=== PATIENT | female | born 1945 | race Caucasian/White ===

== ENCOUNTER 2016-06-30 15:56 | Observation (INO) ==
--- NOTE | 2016-06-30 16:56 | Emergency Department Note ---
Disposition Clinical Impression: Community acquired pneumonia, Hypoxia, Dyspnea Disposition: Admitted As Inpatient Condition: Fair Referrals: Bernard Rod Jr, MD [Primary Care Provider] - Forms: ED Satisfaction Letter General Adult HPI - General Chief complaint: ED Shortness of Breath/Dyspnea Stated complaint: MARYURI Time Seen by Provider: 06/30/16 16:51 Source: patient Limitations: no limitations - History of Present Illness Pain Scale: 0 - Related Data Home Medications Medication Instructions Recorded Confirmed Albuterol Neb [AccuNeb] 0.63 mg IH Q4-6H PRN 06/30/16 06/30/16 Albuterol Sulfate [Ventolin Hfa] 2 puff IH Q4H PRN 06/30/16 06/30/16 Amlodipine Besylate 10 mg PO DAILY 06/30/16 06/30/16 Budesonide/Formoterol 160/4.5 2 puff IH BIDR 06/30/16 06/30/16 [Symbicort 160/4.5] Escitalopram [Lexapro] 20 mg PO DAILY 06/30/16 06/30/16 Gabapentin [Neurontin] 300 mg PO TID 06/30/16 06/30/16 Insulin NPH, HUMAN [HumuLIN N] 15 unit SQ BID 06/30/16 06/30/16 Lisinopril [Zestril] 5 mg PO DAILY 06/30/16 06/30/16 Metformin [Glucophage] 500 mg PO BIDWM 06/30/16 06/30/16 Omeprazole [PriLOSEC] 20 mg PO DAILY 06/30/16 06/30/16 Oxycodone HCl/Acetaminophen 1 each PO Q4-6H PRN 06/30/16 06/30/16 [Percocet 10-325 mg Tablet] Simvastatin [Zocor] 60 mg PO QPM 06/30/16 06/30/16 Temazepam [Restoril] 30 mg PO HS 06/30/16 06/30/16 Allergies Allergy/AdvReac Type Severity Reaction Status Date / Time No Known Allergies Allergy Verified 06/30/16 15:58 Past Medical History - Past Medical History Medical history: Reports: COPD, diabetes, hypertension, TIA Psychiatric history: Reports: no psych history - Social History Smoking Status: Former smoker Alcohol use: Reports: none Drug use: Reports: none Physical Exam - General Limitations: no limitations General appearance: alert, in no apparent distress Course Vital Signs Temperature 98.1 F 06/30/16 15:58 Pulse Rate 104 06/30/16 15:58 Respiratory Rate 20 06/30/16 15:58 Blood Pressure 115/78 06/30/16 15:58 O2 Sat by Pulse Oximetry 97 06/30/16 15:58 Temperature 98.1 F 06/30/16 15:58 Pulse Rate 104 06/30/16 17:05 Respiratory Rate 18 06/30/16 18:03 Blood Pressure 115/78 06/30/16 18:03 O2 Sat by Pulse Oximetry 96 06/30/16 18:03 Oxygen Delivery Oxygen Delivery Nasal Cannula Medical Decision Making - Lab Data Result diagrams: 06/30/16 18:26 06/30/16 18:26 Lab Results 06/30/16 06/30/16 06/30/16 Range/Units 18:26 18:26 18:26 WBC 8.2 (4.3-11.1) K/mcL RBC 4.02 (3.82-4.97) M/mcL Hgb 10.7 L (11.5-15.4) g/dL Hct 34.7 L (35.3-44.9) % MCV 86.3 (83.0-100.0) fL MCH 26.6 L (28.0-33.3) pg MCHC 30.8 L (31.6-35.5) g/dL RDW 15.0 H (11.5-14.5) % Plt Count 484 H (140-400) K/mcL MPV 8.9 L (9.4-12.4) fL Immature Gran % 0.4 (0-4) % Seg Neutrophils % 64.8 % Lymphocytes % 19.8 % Monocytes % 11.2 % Eosinophils % 3.2 % Basophils % 0.6 % Neutrophils # 5.3 (1.6-8.9) K/mcL Lymphocytes # 1.6 (0.6-4.6) K/mcL Monocytes # 0.9 (0.0-1.3) K/mcL Eosinophils # 0.3 (0.0-0.6) K/mcL Basophils # 0.1 (0.0-0.2) K/mcL Sodium 141 (136-145) mEq/L Potassium 3.8 (3.5-4.5) mEq/L Chloride 107 (98-109) mEq/L Carbon Dioxide 23 (19-29) mEq/L BUN 19 (7-20) mg/dL Creatinine 1.26 H (0.57-1.11) mg/dL Est GFR ( Amer) 51 L (> 60) Est GFR (Non-Af Amer) 42 L (> 60) BUN/Creatinine Ratio 15 (6-26) Glucose 111 H (70-99) mg/dL Calculated Osmolality 295 (280-300) Calcium 9.4 (8.6-10.8) mg/dL Troponin I 0.01 (0-0.03) ng/mL B-Natriuretic Peptide (0-100) pg/mL 06/30/16 Range/Units 18:26 WBC (4.3-11.1) K/mcL RBC (3.82-4.97) M/mcL Hgb (11.5-15.4) g/dL Hct (35.3-44.9) % MCV (83.0-100.0) fL MCH (28.0-33.3) pg MCHC (31.6-35.5) g/dL RDW (11.5-14.5) % Plt Count (140-400) K/mcL MPV (9.4-12.4) fL Immature Gran % (0-4) % Seg Neutrophils % % Lymphocytes % % Monocytes % % Eosinophils % % Basophils % % Neutrophils # (1.6-8.9) K/mcL Lymphocytes # (0.6-4.6) K/mcL Monocytes # (0.0-1.3) K/mcL Eosinophils # (0.0-0.6) K/mcL Basophils # (0.0-0.2) K/mcL Sodium (136-145) mEq/L Potassium (3.5-4.5) mEq/L Chloride (98-109) mEq/L Carbon Dioxide (19-29) mEq/L BUN (7-20) mg/dL Creatinine (0.57-1.11) mg/dL Est GFR ( Amer) (> 60) Est GFR (Non-Af Amer) (> 60) BUN/Creatinine Ratio (6-26) Glucose (70-99) mg/dL Calculated Osmolality (280-300) Calcium (8.6-10.8) mg/dL Troponin I (0-0.03) ng/mL B-Natriuretic Peptide 25 (0-100) pg/mL Attestation Statement - Attestation Attestation: I examined this patient and my medical decision-making was reviewed with the BAG LOADER MACHINE OPERATOR/PA/Advanced Practice Nurse/Resident Physician. I agree with the documented findings, disposition and treatment plan as described except to the extent set forth below. [id number] time providing Patient presents complaining of dyspnea. She has a known history of oxygen- dependent COPD. Mild dyspnea noted on exam. Plan of care and management discussed by me with the resident physician 19:38: The patient has a right bundle-branch block and is both tachycardic and mildly hypoxic. We cannot exclude a pulmonary embolus. She is moderate risk which eliminates the use of a d-dimer. CTA chest ordered. I did discuss the patient's GFR and creatinine with the lift team technician.
[2016-06-30] MEDS ORDERED: methylPREDNISolone 125 MG/2 ML VIAL IVP ONE (17:34)
[2016-06-30] MEDS ORDERED: Ipratropium/Albuterol Neb 3 ML IH ONE (17:34)
[2016-06-30] MEDS ORDERED: 0.9 % Sodium Chloride 500 ML IV ONE (17:35)
--- NOTE | 2016-06-30 18:14 | Emergency Department Note ---
Disposition Clinical Impression: Community acquired pneumonia, Hypoxia, Dyspnea Disposition: Admitted As Inpatient Condition: Fair Referrals: Bernard Rod Jr, MD [Primary Care Provider] - Forms: ED Satisfaction Letter SOB HPI - General Chief Complaint: ED Shortness of Breath/Dyspnea Stated Complaint: MARYURI Time Seen by Provider: 06/30/16 16:51 Source: patient Limitations: no limitations Nursing Notes Reviewed: Yes Vital Signs Reviewed: Yes - History of Present Illness 71-year-old female with a history of COPD, type 2 diabetes and hypertension presents emergency Department with a chief complaint of shortness of breath. She has been coughing and sick for the last 5 days but over the last 2 days she has had worsening shortness of breath and has developed productive, green sputum. History of pneumonia in the past. She does use inhalers for her COPD. She has had no fevers or chills. Denies any lightheadedness or syncope. Denies any abdominal pain. She did have a few episodes of vomiting but that has resolved. She has been eating and drinking normally and having normal bowel movements. Denies any chest pain or pressure. Shortness of breath is worse with exertion. She does wear oxygen when needed at home and has noticed she has been wearing this more often. Denies any lower extremity swelling or calf pain. No history of clots or DVTs. - Related Data Home Medications Medication Instructions Recorded Confirmed Albuterol Neb [AccuNeb] 0.63 mg IH Q4-6H PRN 06/30/16 06/30/16 Albuterol Sulfate [Ventolin Hfa] 2 puff IH Q4H PRN 06/30/16 06/30/16 Amlodipine Besylate 10 mg PO DAILY 06/30/16 06/30/16 Budesonide/Formoterol 160/4.5 2 puff IH BIDR 06/30/16 06/30/16 [Symbicort 160/4.5] Escitalopram [Lexapro] 20 mg PO DAILY 06/30/16 06/30/16 Gabapentin [Neurontin] 300 mg PO TID 06/30/16 06/30/16 Insulin NPH, HUMAN [HumuLIN N] 15 unit SQ BID 06/30/16 06/30/16 Lisinopril [Zestril] 5 mg PO DAILY 06/30/16 06/30/16 Metformin [Glucophage] 500 mg PO BIDWM 06/30/16 06/30/16 Omeprazole [PriLOSEC] 20 mg PO DAILY 06/30/16 06/30/16 Oxycodone HCl/Acetaminophen 1 each PO Q4-6H PRN 06/30/16 06/30/16 [Percocet 10-325 mg Tablet] Simvastatin [Zocor] 60 mg PO QPM 06/30/16 06/30/16 Temazepam [Restoril] 30 mg PO HS 06/30/16 06/30/16 Allergies Allergy/AdvReac Type Severity Reaction Status Date / Time No Known Allergies Allergy Verified 06/30/16 15:58 All systems ED: reviewed and negative except as stated. Constitutional: Denies: fever, chills Cardiovascular: Reports: dyspnea on exertion. Denies: chest pain, palpitations , syncope Respiratory: Reports: cough, sputum production. Denies: dyspnea, wheezes Gastrointestinal: Reports: nausea, vomiting. Denies: abdominal pain Musculoskeletal: Denies: back pain, neck pain Integumentary: Denies: rash Neurological: Denies: headache, weakness, numbness Past Medical History - Past Medical History Medical history: Reports: COPD, diabetes, hypertension, TIA Psychiatric history: Reports: no psych history - Social History Smoking Status: Former smoker Alcohol use: Reports: none Drug use: Reports: none Physical Exam General: Patient is talkative, appropriate, she does seem somewhat short of breath as well Cardiovascular: Borderline tachy around 95. Regular rhythm. S1, S2. No murmurs, rubs or gallops. Respiratory: Diminished breath sounds bilaterally with end expiratory wheezing. Coarse breath sounds slightly on the left. Mild respiratory distress. Occasional coughing. Breathing around 26 times a minute. Abdomen: Soft, nontender. No guarding, rebound or rigidity. Normal bowel sounds throughout. Negative Livingston's. No palpable organomegaly Eyes: Pupils equally round and reactive to light, extraocular muscles intact, conjunctiva clear HENT: Normocephalic, no signs of head injury. No oral mucosal lesions. Moist mucous membranes Neuro: Cranial nerves intact. No motor or sensory deficit. Musculoskeletal: No joint tenderness or swelling. There is no redness, swelling , edema, tenderness, asymmetry, pain along the venous system or any other sign of DVT. Skin: No lesions. No diaphoresis. Normal turgor. Normal color Psych: Appropriate - General Limitations: no limitations General appearance: alert, in no apparent distress Course Course Narrative: Patient was put on a pulse oximeter and by the time she was helped out of bed her pulse oximetry dropped to 85%. With ambulation she becomes hypoxic very quickly. Usually she does not require oxygen continuously. Chest x-ray shows left lower lobe pneumonia. Patient is quite symptomatically and seems to be short of breath. Some improvement with DuoNeb's. She also has a history of COPD he was given steroids. We started her on Levaquin for her pneumonia. She has not been in the hospital since February and at that time she had pneumonia. I discussed this with the patient and the son and they are both comfortable with admission. Plan to admit for pneumonia and hypoxia with increased oxygen requirements. Discussed with the on-call hospitalist, Dr. Enriquez accepts for admission. After reviewing her workup with her new RBBB and the S1, Q3, T3 pattern along with her tachycardia and hypoxia we have decided to rule her out for PE. We will order a CT angiography of her chest. Her kidney function is borderline but we called radiology and we will do a half dose. She will be given fluid hydration along with this. It is very importantly rule this out because it is certainly a possibility and can be life-threatening. - Reevaluation(s) Reevaluation #1: CTA shows no evidence of pulmonary embolus. She does have left lower lobe pneumonia. Possible right apical multifocal pneumonia. Plan to continue with antibiotics, supplemental O2, fluid hydration and admission. Vital Signs Temperature 98.1 F 06/30/16 15:58 Pulse Rate 104 06/30/16 15:58 Respiratory Rate 20 06/30/16 15:58 Blood Pressure 115/78 06/30/16 15:58 O2 Sat by Pulse Oximetry 97 06/30/16 15:58 Temperature 98.1 F 06/30/16 15:58 Pulse Rate 101 06/30/16 20:00 Respiratory Rate 16 06/30/16 20:00 Blood Pressure 101/50 06/30/16 20:00 O2 Sat by Pulse Oximetry 95 06/30/16 20:00 Oxygen Delivery Oxygen Delivery Nasal Cannula Shortness of Breath/Dyspnea - Lab Data Result diagrams: 06/30/16 18:26 06/30/16 18:26 Lab Results 06/30/16 06/30/16 06/30/16 Range/Units 18:26 18:26 18:26 WBC 8.2 (4.3-11.1) K/mcL RBC 4.02 (3.82-4.97) M/mcL Hgb 10.7 L (11.5-15.4) g/dL Hct 34.7 L (35.3-44.9) % MCV 86.3 (83.0-100.0) fL MCH 26.6 L (28.0-33.3) pg MCHC 30.8 L (31.6-35.5) g/dL RDW 15.0 H (11.5-14.5) % Plt Count 484 H (140-400) K/mcL MPV 8.9 L (9.4-12.4) fL Immature Gran % 0.4 (0-4) % Seg Neutrophils % 64.8 % Lymphocytes % 19.8 % Monocytes % 11.2 % Eosinophils % 3.2 % Basophils % 0.6 % Neutrophils # 5.3 (1.6-8.9) K/mcL Lymphocytes # 1.6 (0.6-4.6) K/mcL Monocytes # 0.9 (0.0-1.3) K/mcL Eosinophils # 0.3 (0.0-0.6) K/mcL Basophils # 0.1 (0.0-0.2) K/mcL Sodium 141 (136-145) mEq/L Potassium 3.8 (3.5-4.5) mEq/L Chloride 107 (98-109) mEq/L Carbon Dioxide 23 (19-29) mEq/L BUN 19 (7-20) mg/dL Creatinine 1.26 H (0.57-1.11) mg/dL Est GFR ( Amer) 51 L (> 60) Est GFR (Non-Af Amer) 42 L (> 60) BUN/Creatinine Ratio 15 (6-26) Glucose 111 H (70-99) mg/dL Calculated Osmolality 295 (280-300) Calcium 9.4 (8.6-10.8) mg/dL Troponin I 0.01 (0-0.03) ng/mL B-Natriuretic Peptide (0-100) pg/mL 06/30/16 Range/Units 18:26 WBC (4.3-11.1) K/mcL RBC (3.82-4.97) M/mcL Hgb (11.5-15.4) g/dL Hct (35.3-44.9) % MCV (83.0-100.0) fL MCH (28.0-33.3) pg MCHC (31.6-35.5) g/dL RDW (11.5-14.5) % Plt Count (140-400) K/mcL MPV (9.4-12.4) fL Immature Gran % (0-4) % Seg Neutrophils % % Lymphocytes % % Monocytes % % Eosinophils % % Basophils % % Neutrophils # (1.6-8.9) K/mcL Lymphocytes # (0.6-4.6) K/mcL Monocytes # (0.0-1.3) K/mcL Eosinophils # (0.0-0.6) K/mcL Basophils # (0.0-0.2) K/mcL Sodium (136-145) mEq/L Potassium (3.5-4.5) mEq/L Chloride (98-109) mEq/L Carbon Dioxide (19-29) mEq/L BUN (7-20) mg/dL Creatinine (0.57-1.11) mg/dL Est GFR ( Amer) (> 60) Est GFR (Non-Af Amer) (> 60) BUN/Creatinine Ratio (6-26) Glucose (70-99) mg/dL Calculated Osmolality (280-300) Calcium (8.6-10.8) mg/dL Troponin I (0-0.03) ng/mL B-Natriuretic Peptide 25 (0-100) pg/mL - EKG Data EKG results narrative: EKG shows sinus tachycardia with a rate of about 100 bpm. There is a right bundle branch block. There is no significant ST changes. Right axis deviation.
[2016-06-30 18:40] LABS: Basophils # 0.1 K/mcL (0.0-0.2); Basophils % 0.6 %; Eosinophils # 0.3 K/mcL (0.0-0.6); Eosinophils % 3.2 %; Hematocrit 34.7 % (35.3-44.9); Hemoglobin 10.7 g/dL (11.5-15.4); Immature Granulocytes % 0.4 % (0-4); Lymphocytes # 1.6 K/mcL (0.6-4.6); Lymphocytes % 19.8 %; Mean Corpuscular HGB Conc 30.8 g/dL (31.6-35.5); Mean Corpuscular Hemoglobin 26.6 pg (28.0-33.3); Mean Corpuscular Volume 86.3 fL (83.0-100.0); Mean Platelet Volume 8.9 fL (9.4-12.4); Monocytes # 0.9 K/mcL (0.0-1.3); Monocytes % 11.2 %; Neutrophils # 5.3 K/mcL (1.6-8.9); Platelet Count 484 K/mcL (140-400); Red Blood Count 4.02 M/mcL (3.82-4.97); Segmented Neutrophils % 64.8 %
[2016-06-30 18:59] LABS: Calcium 9.4 mg/dL (8.6-10.8); Potassium 3.8 mEq/L (3.5-4.5)
[2016-06-30] MEDS ORDERED: Levofloxacin 750 MG/150 ML 750 MG/150 ML BAG IVPB ONE (19:04)
[2016-06-30] MEDS ORDERED: 0.9 % Sodium Chloride 1,000 ML IV ONE (19:04)
[2016-06-30] MEDS ORDERED: 0.9 % Sodium Chloride 1,000 ML IVC SCH (20:30)
[2016-06-30] MEDS ORDERED: Naloxone 0.4 MG/ML INJ IVP PRN (23:15)
[2016-06-30] MEDS ORDERED: *HR* Morphine 2 MG/ML SYRINGE IVP PRN (23:15)
[2016-06-30] MEDS ORDERED: Acetaminophen 325 MG TABLET PO PRN (23:15)
[2016-06-30] MEDS ORDERED: *HR* OxyCODONE Immed Rel 5 MG TABLET PO PRN (23:15)
[2016-06-30] MEDS ORDERED: Ondansetron 4 MG/2 ML VIAL IVP PRN (23:15)
[2016-06-30] MEDS ORDERED: Albuterol 2.5 MG/3 ML NEBULIZER IH PRN (23:15)
[2016-06-30] MEDS ORDERED: Temazepam 15 MG CAPSULE PO PRN (23:25)
[2016-06-30] MEDS ORDERED: D5% in Water 1,000 ML IV PRN (23:29)
[2016-06-30] MEDS ORDERED: Dextrose Gel 15 GM PO PRN ×2 (23:29)
[2016-06-30] MEDS ORDERED: *HR* Dextrose 50 % in Water (Syg) 50 ML SYRINGE IVP PRN (23:29)
[2016-06-30] MEDS ORDERED: Insulin DETEMIR 100 UNIT/ML X5UNITS SQ SCH (23:30)
[2016-06-30] MEDS ORDERED: Melatonin 3 MG TABLET PO SCH (23:30)
[2016-07-01] MEDS: Ipratropium/Albuterol Neb 3 ML IH SCH ×5 (00:16→22:37)
[2016-07-01] MEDS: Insulin LISPRO 300 UNITS/3 ML VIAL SQ SCH ×5 (00:32→21:03)
[2016-07-01 01:47] LABS: Hematocrit 33.6 % (35.3-44.9); Hemoglobin 10.4 g/dL (11.5-15.4); Immature Platelets 1.7 % (1.1-6.1); Mean Corpuscular Hemoglobin 26.9 pg (28.0-33.3); Mean Platelet Volume 8.9 fL (9.4-12.4); Red Blood Count 3.86 M/mcL (3.82-4.97)
[2016-07-01 01:53] LABS: INR 1.2; Prothrombin Time 13.3 Seconds (9.4-12.1); VBG HCO3 23.1 mEq/L (21-27); VBG PH 7.38 pH Units (7.32-7.42)
[2016-07-01 01:54] LABS: Ionized Calcium 1.19 mmol/L (1.15-1.35)
[2016-07-01 01:55] LABS: Activated Partial Thrombo Time 30.3 Seconds (26.0-36.0)
[2016-07-01 02:06] LABS: Hemoglobin A1C 7.2 %
[2016-07-01 02:07] LABS: Albumin 2.9 g/dL (3.5-5.0); Albumin/Globulin Ratio 0.7 (1.1-2.2); Bilirubin,Total 0.2 mg/dL (0.2-1.2); Calcium 9.5 mg/dL (8.6-10.8); Chol/HDL Ratio 3.1 (0-4.9); Magnesium 1.3 mg/dL (1.6-2.6); Phosphorous 2.8 mg/dL (2.3-4.7); Potassium 3.9 mEq/L (3.5-4.5); Total Protein 6.9 g/dL (6.0-8.3)
[2016-07-01 02:27] LABS: Thyroid Stimulating Hormone 0.983 mcIU/mL (0.350-4.840)
[2016-07-01] MEDS: Benzonatate 100 MG CAPSULE PO PRN ×2 (04:16→17:35)
[2016-07-01] MEDS: *HR* Heparin 5,000 UNIT/ML VIAL SQ SCH ×3 (06:03→21:03)
[2016-07-01] MEDS: predniSONE 20 MG TABLET PO SCH (08:07)
[2016-07-01] MEDS: Gabapentin 300 MG CAPSULE PO SCH ×3 (08:08→21:03)
[2016-07-01] MEDS: amLODIPine 5 MG TABLET PO SCH (08:08)
--- NOTE | 2016-07-01 08:21 | Internal Med History&Physical ---
Date of Encounter: 06/30/16 Time of Encounter: 23:00 Assessment and Plan (1) Acute on chronic respiratory failure with hypoxemia Status: Acute . (2) RBBB Status: Acute . (3) Obesity (BMI 30-39.9) Status: Chronic . (4) HTN (hypertension) Status: Chronic . Qualifiers: Hypertension type: unspecified secondary hypertension Qualified Code(s): I15.9 - Secondary hypertension, unspecified; I15 - Secondary hypertension (5) Acute chronic obstructive pulmonary disease with respiratory failure Status: Acute . (6) Acute exacerbation of COPD with asthma Status: Acute . (7) Community acquired pneumonia Status: Acute . Internal Medicine - H&P: HPI Chief complaint: Difficulty breathing Admitted From: Emergency Dept Plans for Post Hospital Care: Home History of present illness: Ms. Lanza is a 71 year old female with history significant of type 2 diabetes mellitus, hypertension, COPD, chronic respiratory failure oxygen dependent, H/ OTIA, GERD, depression and anxiety, osteoarthritis, anemia, chronic musculoskeletal pain, obesity, former heavy smoker The patient was visited and interviewed and examined. Patient is admitted to [facility] via the emergency department when she presents reports difficulty in breathing. Patient has a long history of problematic chronic respiratory failure oxygen dependent. She acknowledges a former heavy tobacco usage discontinued over 6 years prior. However still lives in a smoking household. She reports with generalized malaise over a urinalysis 5- 70. Time worse in the 2 days leading up to presentation. Sputum as become more productive and green and thick. No evidence for hemoptysis. Symptoms reminiscent of pneumonia experience in the past. Home treatments currently ineffective. Denies overt fevers chills sweats nausea vomiting diarrhea headache syncopal presyncopal complaints. Shortness of breath present at rest but worse with activity home oxygen demand has become more constant recurrent symptoms. Findings in the ED: Temperature 98.1 pulse 104 respirations 16-20 BP 101-115/50- 78. O2 saturation 95-97% liters nasal cannula. WBC 8 point hemoglobin 10.7. Platelets 484,000. RDW 15. MPV 8.9. Differential normal. Metabolic panel BUN 19 creatinine 1.6 GFR 42 . Troponin 0.01 BNP 25. EKG sinus tachycardia. Rate 100. Right bundle branch block. Right axis deviation. No acute ischemic changes. Portable chest x-ray finds left basilar airspace disease suggestive of pneumonia. CT angiogram of the chest demonstrated no evidence for pulmonary embolism. Masslike focus of consolidation in the left lower lobe may represent acute pneumonia. Recommendation for further imaging after the course of therapy. Underlying malignancy cannot be excluded. Opacification of right lung apex may represent fibrotic change. Multifocal pneumonia cannot be excluded. Reactive mediastinal lymph nodes noted. Extensive groundglass attenuation peripherally in the left lower lobe suggesting postobstructive changes. Advanced centrilobular emphysema observed. Masslike focus of consolidation 0.4 x 3.8 cm left lower lobe. Preliminary impression suggest acute on chronic hypoxic respiratory failure secondary to acute exacerbation of COPD bronchitis/community-acquired bronchopneumonia. Radiographic findings suggest possible multifocal pneumonia. Dense masslike focus in the left lower lobe is of concern given patient's significant history of tobacco abuse. Further radiographic study to rule out malignancy will be considered. Systemic inflammatory response syndrome criteria are met. The patient presents at further risk for acute clinical decline and morbidity given her presenting chief complaints, clinical findings and comorbidities. Workup and treatment will proceed comprehensively. Cumulative laboratory and radiographic data base was reviewed, considered and discussed. Pertinent ancillary medical records including ECW and PCI documentation was reviewed and considered. Given the patient's presenting concerns, past medical history, clinical findings and symptoms, she is admitted at this time will undergo further evaluation and disposition. Orders were written as per the computerized physician tape recorder mechanic system.......................................................................... .................... Consultative opinions will be sought as clinical circumstances justify. Pain management needs will be addressed. Laboratory and radiographic data base will be updated as appropriate. Studies include: Cultures of blood urine and sputum, Legionella and streptococcal pneumoniae urine antigen, cardiac injury panel, BNP, coag profile, metabolic and hematologic panel, magnesium, phosphorus, ionized calcium, thyroid panel, lipid profile, A1c, C-peptide, CRP sedimentation rate, respiratory infection profile, respiratory virus panel, blood gas, UA, lactic acid, serologies, etc. Precautions: Aspiration, fall, delirium protocol/surveillance initiated. Telemetry with continuous hemodynamic monitoring and pulse oximetry initiated. Empiric antibiotic coverage: Intravenous Levaquin pending culture data. Special studies: CT/CTA chest, chest x-ray, telemetry, EKG. Pulmonary toilet: Incentive spirometry, aerosol bronchodilator, mucolytic, antitussive, supplemental oxygen. Corticosteroid therapy. CPAP/BiPAP supplemental oxygen delivery. Aerosol Mucomyst therapy. Fluid and electrolyte repletion efforts will proceed. Careful attention to fluid balance and renal recovery will be emphasized. Avoidance of nephrotoxic exposure and adverse drug drug interaction in the setting of impaired renal function will be monitored closely. Acute coronary syndrome protocol/surveillance initiated. DVT and PUD prophylaxis initiated: PPI therapy, intermittent pneumatic cuffs. Subcutaneous heparin. Early ambulation will be encouraged. Immunization updates recommended. Influenza and pneumococcal vaccinations as part of ongoing preventative healthcare recommendations strongly recommended. Smoking cessation counseling briefly addressed. Patient is a former smoker. Advanced care directive discussion briefly addressed. Patient does not declare any healthcare restrictions at this time. Cardiovascular risk appraisal and cardiovascular risk reduction efforts will be emphasized. Physical /occupational therapy may be counseled to evaluate patient's functional capacity and progress mobility as her circumstances permit. Sliding scale insulin coverage, ADA dietary restraint and schedule an as-needed basis fingerstick glucose assessments were initiated. Nutrition/diabetes education counseling may be considered as circumstances justify. Outpatient medication schedules will be reviewed, confirmed and facilitated as appropriate. Reconciliation of home treatments including adjustments, substitutions and reintroduction into the treatment regimen will address necessary maintenance therapies for chronic pre-existing medical conditions. Plan of care has been reviewed and discussed in detail with the patient. Questions addressed. Hospital course dictated by clinical findings, treatment response and potential consultative interventions. Patient is at risk for further acute clinical decline and morbidity due to her advanced age, presenting chief complaints and comorbid conditions. Condition is serious. Prognosis is guarded. CODE STATUS is full. Past Med Surg Social Fam HX - Past Medical History Source: old records reviewed Medical history: arthritis, COPD, diabetes, GERD, hypertension, osteoporosis, TIA, other Psychiatric history: anxiety, depression, other - Past Surgical History Surgical History: hysterectomy, orthopedic, other, other (Ear surgery. Knee surgery. Hand surgery. Carpal tunnel syndrome surgery.) - Social History Smoking Status: Former smoker Alcohol use: none Drug use: none Occupational status: retired Current living situation: With Family Activity Level: Independent ambulation, Mostly sedentary Recent Out of Country Travel Within the Last 8 Weeks: No Exposure or Possible Exposure to Illness During Travel: No - Family History Mother Hx Family Cardiac Disorders: Yes ([place]) Sister Hx Family Cancer: Yes ([place]) Internal Medicine - H&P: Meds Albuterol Neb [AccuNeb] 0.63 mg IH Q4-6H PRN 06/30/16 [History] Albuterol Sulfate [Ventolin Hfa] 2 puff IH Q4H PRN 06/30/16 [History] Amlodipine Besylate 10 mg PO DAILY 06/30/16 [History] Budesonide/Formoterol 160/4.5 [Symbicort 160/4.5] 2 puff IH BIDR 06/30/16 [ History] Escitalopram [Lexapro] 20 mg PO DAILY 06/30/16 [History] Gabapentin [Neurontin] 300 mg PO TID 06/30/16 [History] Insulin NPH, HUMAN [HumuLIN N] 15 unit SQ BID 06/30/16 [History] Omeprazole [PriLOSEC] 20 mg PO DAILY 06/30/16 [History] Oxycodone HCl/Acetaminophen [Percocet 10-325 mg Tablet] 1 each PO Q4-6H PRN [History] Simvastatin [Zocor] 60 mg PO QPM 06/30/16 [History] Temazepam [Restoril] 30 mg PO HS 06/30/16 [History] Benzonatate [Tessalon] 100 mg PO TID PRN #30 capsule 07/02/16 [Rx] Levofloxacin [Levaquin] 500 mg PO DAILY #5 tablet 07/02/16 [Rx] PredniSONE 40 mg PO DAILY 12 Days 07/02/16 [Rx] Lisinopril [Zestril] 5 mg PO DAILY #0 07/07/16 [Rx] Metformin [Glucophage] 500 mg PO BIDWM #0 07/07/16 [Rx] Allergies No Known Allergies Allergy (Verified 06/30/16 15:58) All Systems PM: A 10-system review of systems was performed and is negative for pertinent findings except as documented above in the HPI. - Constitutional Constitutional: as per HPI, malaise, no chills, no fever(s), no night sweats - EENT Eyes: as per HPI, no change in vision, no discharge, no pain, no photophobia Ears: as per HPI, no ear discharge, no ear pain, no tinnitus Nose, mouth and throat: as per HPI, no dysphagia, no nasal discharge, no neck pain, no sore throat - Cardiovascular Cardiovascular ROS IM: as per HPI, no chest pain, no diaphoresis, no dyspnea, no lightheadedness, no palpitations, no syncope - Respiratory Respiratory: as per HPI, cough, dyspnea, dyspnea on exertion, wheezing, chest congestion, pain with cough, no excessive phlegm production - Gastrointestinal Gastrointestinal: as per HPI, no abdominal pain, no diarrhea, no hematemesis, no hematochezia, no melena, no nausea, no vomiting - Genitourinary Genitourinary: as per HPI, no change in urinary stream, no dysuria, no flank pain, no hematuria - Musculoskeletal Musculoskeletal ROS IM: as per HPI, no numbness, no tingling - Integumentary Integumentary IM: as per HPI, no rash, no unusual bruising - Neurological Neurological ROS: as per HPI, no confusion, no convulsions, no focal weakness, no numbness, no tingling, no tremor(s) - Psychiatric Psychiatric: as per HPI - Endocrine Endocrine IM: as per HPI - Hematologic/Lymphatic Hematologic/Lymphatic: as per HPI, no easy bruising - Allergic/Immunologic Allergic/Immunologic: as per HPI - Constitutional Vitals: Temp Pulse Resp BP Pulse Ox 97.6 F 97 20 145/76 93 L 07/01/16 07:17 07/01/16 07:17 07/01/16 07:17 07/01/16 07:17 07/01/16 07:17 General appearance: Present: cooperative, mild distress, A&O X 3, obese, answers questions appropriately - Head Head exam: Present: atraumatic, normal inspection, normocephalic - Eye Eye exam: Present: EOMI, PERRL, conjuntiva pink, sclera anicteric Pupils: Present: normal accommodation, PERRL - ENT ENT exam: Present: mucous membranes moist, normal oropharynx - Neck Neck exam general surgery: Present: full ROM, supple, trachea midline. Absent: lymphadenopathy - Respiratory Respiratory exam: Present: chest wall tenderness, decreased breath sounds, respiratory distress, rhonchi, wheezes. Absent: accessory muscle use, CTAB, rales - Cardiovascular Cardiovascular exam: Present: distant heart sounds, RRR, +S1, +S2. Absent: diastolic murmur, gallop, rubs, systolic murmur - GI/Abdominal GI/Abdominal exam: Present: normal bowel sounds, soft, no peritoneal signs. Absent: distended, tenderness - Extremities Exam Extremities exam: Present: full ROM, warm, radial pulses palpable and symetrical. Absent: calf tenderness, cyanotic, pedal edema - Neurological Exam Neurological exam: Present: alert, CN II-XII intact, oriented X3, no focal deficits. Absent: pronater drift, facial droop, speech deficit - Psychiatric Psychiatric exam: Present: normal affect, normal mood - Skin Skin exam: Present: dry, intact, warm. Absent: petechiae, rash, urticaria, vesicles Internal Med - H&P Results - Labs CBC & Chem 7: 07/01/16 01:34 07/02/16 05:25 Labs: Short CBC 07/01/16 Range/Units 01:34 WBC 7.3 (4.3-11.1) K/mcL Hgb 10.4 L (11.5-15.4) g/dL Hct 33.6 L (35.3-44.9) % Plt Count 492 H (140-400) K/mcL BMP 07/01/16 01:34 Sodium 140 Potassium 3.9 Chloride 109 Carbon Dioxide 20 BUN 20 Creatinine 1.38 H Glucose 293 H Calcium 9.5 Cardiac Enzymes 07/01/16 Range/Units 01:34 Troponin I 0.00 (0-0.03) ng/mL Liver Function 07/01/16 Range/Units 01:34 Total Bilirubin 0.2 (0.2-1.2) mg/dL AST 17 (5-34) Units/L ALT 14 (0-55) Units/L Alkaline Phosphatase 76 (38-126) Units/L Albumin 2.9 L (3.5-5.0) g/dL - ABG Interpretation ABG results: 07/01/16 01:34 VBG pH 7.38 VBG pCO2 39 L VBG pO2 64 H VBG HCO3 23.1 - Impressions Vital Signs Temp Pulse Resp BP Pulse Ox 07/01/16 07:17 97.6 F 97 20 145/76 93 L 07/01/16 04:43 97.8 F 98 15 115/52 95 07/01/16 04:29 18 98 07/01/16 00:18 18 96 07/01/16 00:14 98.2 F 94 14 148/75 95 06/30/16 21:37 98.4 F 98 16 146/71 94 L 06/30/16 21:02 96 20 153/70 94 L 06/30/16 20:00 101 16 101/50 95 06/30/16 19:30 106 16 129/69 95 06/30/16 18:03 18 115/78 96 06/30/16 18:00 94 16 155/75 94 L 06/30/16 17:34 83 20 153/70 94 L 06/30/16 17:05 104 20 115/78 97 06/30/16 15:58 98.1 F 104 20 115/78 97 Intake and Output 06/30/16 07/01/16 07/01/16 23:59 07:59 15:59 Intake Total 650 / 650 800 / 800 Output Total 450 / 450 Balance 650 / 650 350 / 350 Intake: IV Fluids 650 / 650 0.9 % Sodium Chloride 500 500 / 500 ML @ 3750 mls/hr IV BOLUS ONE Rx#:[id number] Levaquin 750mg/150 mL 750 150 / 150 mg In 150 ml @ 100 mls/ hr IVPB ONCE ONE Rx#: [id number] Oral 800 / 800 Output: Urine 450 / 450 Other: Weight 90.446 kg 90.443 kg Blood Glucose* 242 Patient Weight 07/01/16 23:59 Weight 90.443 kg Short CBC 07/01/16 06/30/16 Range/Units 01:34 18:26 WBC 7.3 8.2 (4.3-11.1) K/mcL Hgb 10.4 L 10.7 L (11.5-15.4) g/dL Hct 33.6 L 34.7 L (35.3-44.9) % Plt Count 492 H 484 H (140-400) K/mcL Neutrophils # 5.3 (1.6-8.9) K/mcL BMP 07/01/16 06/30/16 Range/Units 01:34 18:26 Sodium 140 141 (136-145) mEq/L Potassium 3.9 3.8 (3.5-4.5) mEq/L Chloride 109 107 (98-109) mEq/L Carbon Dioxide 20 23 (19-29) mEq/L BUN 20 19 (7-20) mg/dL Creatinine 1.38 H 1.26 H (0.57-1.11) mg/dL Glucose 293 H 111 H (70-99) mg/dL Calcium 9.5 9.4 (8.6-10.8) mg/dL Cardiac Enzymes 07/01/16 06/30/16 Range/Units 01:34 18:26 Troponin I 0.00 0.01 (0-0.03) ng/mL Liver Function 07/01/16 Range/Units 01:34 Total Bilirubin 0.2 (0.2-1.2) mg/dL AST 17 (5-34) Units/L ALT 14 (0-55) Units/L Alkaline Phosphatase 76 (38-126) Units/L Albumin 2.9 L (3.5-5.0) g/dL 07/01/16 01:34 VBG pH 7.38 VBG pCO2 39 L VBG pO2 64 H VBG HCO3 23.1 Abnormal lab results Hgb 10.4 g/dL (11.5-15.4) L 07/01/16 01:34 Hct 33.6 % (35.3-44.9) L 07/01/16 01:34 MCH 26.9 pg (28.0-33.3) L 07/01/16 01:34 MCHC 31.0 g/dL (31.6-35.5) L 07/01/16 01:34 RDW 15.0 % (11.5-14.5) H 07/01/16 01:34 Plt Count 492 K/mcL (140-400) H 07/01/16 01:34 MPV 8.9 fL (9.4-12.4) L 07/01/16 01:34 PT 13.3 Seconds (9.4-12.1) H 07/01/16 01:34 VBG pCO2 39 mmHg (41-51) L 07/01/16 01:34 VBG pO2 64 mmHg (25-40) H 07/01/16 01:34 Creatinine 1.38 mg/dL (0.57-1.11) H 07/01/16 01:34 Est GFR ( Amer) 46 (> 60) L 07/01/16 01:34 Est GFR (Non-Af Amer) 38 (> 60) L 07/01/16 01:34 Glucose 293 mg/dL (70-99) H 07/01/16 01:34 POC Glucose 242 (58-89) H 07/01/16 07:16 Hemoglobin A1c 7.2 % (-5.6) H 07/01/16 01:34 Calculated Osmolality 303 (280-300) H 07/01/16 01:34 Magnesium 1.3 mg/dL (1.6-2.6) L 07/01/16 01:34 C-Reactive Protein 121 mg/L (Less than 5) H 07/01/16 01:34 Albumin 2.9 g/dL (3.5-5.0) L 07/01/16 01:34 Globulin 4.0 g/dL (2.4-3.5) H 07/01/16 01:34 Albumin/Globulin Ratio 0.7 (1.1-2.2) L 07/01/16 01:34 Allergies Allergy/AdvReac Type Severity Reaction Status Date / Time No Known Allergies Allergy Verified 06/30/16 15:58 Laboratory Results WBC 7.3 K/mcL (4.3-11.1) 07/01/16 01:34 RBC 3.86 M/mcL (3.82-4.97) 07/01/16 01:34 Hgb 10.4 g/dL (11.5-15.4) L 07/01/16 01:34 Hct 33.6 % (35.3-44.9) L 07/01/16 01:34 MCV 87.0 fL (83.0-100.0) 07/01/16 01:34 MCH 26.9 pg (28.0-33.3) L 07/01/16 01:34 MCHC 31.0 g/dL (31.6-35.5) L 07/01/16 01:34 RDW 15.0 % (11.5-14.5) H 07/01/16 01:34 Plt Count 492 K/mcL (140-400) H 07/01/16 01:34 MPV 8.9 fL (9.4-12.4) L 07/01/16 01:34 Immature Gran % 0.4 % (0-4) 06/30/16 18:26 Seg Neutrophils % 64.8 % 06/30/16 18:26 Lymphocytes % 19.8 % 06/30/16 18:26 Monocytes % 11.2 % 06/30/16 18:26 Eosinophils % 3.2 % 06/30/16 18:26 Basophils % 0.6 % 06/30/16 18:26 Neutrophils # 5.3 K/mcL (1.6-8.9) 06/30/16 18:26 Lymphocytes # 1.6 K/mcL (0.6-4.6) 06/30/16 18:26 Monocytes # 0.9 K/mcL (0.0-1.3) 06/30/16 18:26 Eosinophils # 0.3 K/mcL (0.0-0.6) 06/30/16 18: Basophils # 0.1 K/mcL (0.0-0.2) 06/30/16 18:26 Immature Plt Fraction 1.7 % (1.1-6.1) 07/01/16 01:34 PT 13.3 Seconds (9.4-12.1) H 07/01/16 01:34 INR 1.2 07/01/16 01:34 APTT 30.3 Seconds (26.0-36.0) 07/01/16 01:34 VBG pH 7.38 pH Units (7.32-7.42) 07/01/16 01:34 VBG pCO2 39 mmHg (41-51) L 07/01/16 01:34 VBG pO2 64 mmHg (25-40) H 07/01/16 01:34 VBG HCO3 23.1 mEq/L (21-27) 07/01/16 01:34 Sodium 140 mEq/L (136-145) 07/01/16 01:34 Potassium 3.9 mEq/L (3.5-4.5) 07/01/16 01:34 Chloride 109 mEq/L (98-109) 07/01/16 01:34 Carbon Dioxide 20 mEq/L (19-29) 07/01/16 01:34 BUN 20 mg/dL (7-20) 07/01/16 01:34 Creatinine 1.38 mg/dL (0.57-1.11) H 07/01/16 01:34 Est GFR ( Amer) 46 (> 60) L 07/01/16 01:34 Est GFR (Non-Af Amer) 38 (> 60) L 07/01/16 01:34 BUN/Creatinine Ratio 14 (6-26) 07/01/16 01:34 Glucose 293 mg/dL (70-99) H 07/01/16 01:34 POC Glucose 242 (58-89) H 07/01/16 07:16 Est Mean Plasma Glucose 160 mg/dl 07/01/16 01:34 Hemoglobin A1c 7.2 % (-5.6) H 07/01/16 01:34 Calculated Osmolality 303 (280-300) H 07/01/16 01:34 Lactic Acid 1.9 mmol/L (0.5-2.2) 07/01/16 01:34 Calcium 9.5 mg/dL (8.6-10.8) 07/01/16 01:34 Ionized Calcium 1.19 mmol/L (1.15-1.35) 07/01/16 01:34 Phosphorus 2.8 mg/dL (2.3-4.7) 07/01/16 01:34 Magnesium 1.3 mg/dL (1.6-2.6) L 07/01/16 01:34 Total Bilirubin 0.2 mg/dL (0.2-1.2) 07/01/16 01:34 AST 17 Units/L (5-34) 07/01/16 01:34 ALT 14 Units/L (0-55) 07/01/16 01:34 Alkaline Phosphatase 76 Units/L (38-126) 07/01/16 01:34 Troponin I 0.00 ng/mL (0-0.03) 07/01/16 01:34 C-Reactive Protein 121 mg/L (Less than 5) H 07/01/16 01:34 B-Natriuretic Peptide 28 pg/mL (0-100) 07/01/16 01:34 Serum Total Protein 6.9 g/dL (6.0-8.3) 07/01/16 01:34 Albumin 2.9 g/dL (3.5-5.0) L 07/01/16 01:34 Globulin 4.0 g/dL (2.4-3.5) H 07/01/16 01:34 Albumin/Globulin Ratio 0.7 (1.1-2.2) L 07/01/16 01:34 Triglycerides 99 mg/dL (< 150) 07/01/16 01:34 Cholesterol 141 mg/dL (< 200) 07/01/16 01:34 LDL Cholesterol, Calc 76 mg/dL (0-99) 07/01/16 01:34 VLDL Cholesterol, Calc 20 mg/dL (< 31) 07/01/16 01:34 HDL Cholesterol 45 mg/dL (40-59) 07/01/16 01:34 Cholesterol/HDL Ratio 3.1 (0-4.9) 07/01/16 01:34 TSH 0.983 mcIU/mL (0.350-4.840) 07/01/16 01:34 Impressions Chest X-Ray 06/30/16 17:34 IMPRESSION: Left basilar airspace disease, suggestive of pneumonia. Radiographic follow-up to resolution recommended. D/ / Reddy Jameson MD / Reddy Jameson MD Interpreting Provider: Reddy Jameson MD Chest CTA 06/30/16 19:30 IMPRESSION: 1. No pulmonary embolism. 2. Dense masslike focus of consolidation in the left lower lobe may represent acute pneumonia. Recommend follow-up imaging after a course of therapy to ensure resolution. Underlying malignancy cannot be excluded on this single exam. 3. Additional focus of opacification at the right lung apex may represent fibrotic change. Multifocal pneumonia cannot be excluded. 4. Slightly reactive mediastinal lymph nodes. D/ / Kunal Huizar MD / Kunal Huizar MD Interpreting Provider: Kunal Huizar MD
[2016-07-01] MEDS: 0.9 % Sodium Chloride 1,000 ML IVC SCH (08:23)
[2016-07-01] MEDS ORDERED: Levofloxacin 500 MG/100 ML 500 MG/100 ML BAG IVPB SCH ×2 (09:00→11:00)
--- NOTE | 2016-07-01 09:01 | Internal Med Progress Note ---
Date of Encounter: 07/01/16 Time of Encounter: 08:59 - Assessment and plan (1) Community acquired pneumonia Current Visit: Yes Status: Acute Assessment and plan: Chest x-ray and CT chest showed left lower lobe consolidation. Follow-up blood cultures and continue IV Levaquin. Supportive care with when necessary supplemental oxygen. (2) Acute kidney injury Current Visit: Yes Status: Acute Assessment and plan: Continue IV hydration and monitor serum creatinine closely. Dose antibiotics according to current GFR. Avoid new nephrotoxic agents. Hold Lisinopril. (3) Acute on chronic respiratory failure with hypoxemia Current Visit: Yes Status: Acute Assessment and plan: Patient noted to have mild exacerbation of COPD and she is noted to be on intermittent home oxygen. Continue oral steroids and IV antibiotics and Cipro. Continue bronchodilators and supplemental oxygen as needed. (4) Diabetes mellitus Current Visit: Yes Status: Chronic Assessment and plan: Accu-Chek blood glucose monitoring with basal bolus insulin regimen. Blood sugars noted to be well controlled. She is at risk for steroid-induced hyperglycemia. Diabetic diet. Qualifiers: Diabetes mellitus type: type 2 Diabetes mellitus complication status: with neurologic complications Diabetes mellitus complication detail: with polyneuropathy Diabetes mellitus terminal system operator insulin use: with shelter use Qualified Code(s): E11.42 - Type 2 diabetes mellitus with diabetic polyneuropathy; Z79.4 - longterm (current) use of insulin (5) Depression Current Visit: Yes Status: Chronic Qualifiers: Depression Type: unspecified Qualified Code(s): F32.9 - Major depressive disorder, single episode, unspecified (6) HTN (hypertension) Current Visit: Yes Status: Chronic Assessment and plan: Blood pressure noted to be well controlled. Hold lisinopril due to renal dysfunction and continue remaining home medications. Qualifiers: Hypertension type: unspecified secondary hypertension Qualified Code(s): I15.9 - Secondary hypertension, unspecified; I15 - Secondary hypertension (7) Obesity (BMI 30-39.9) Current Visit: Yes Status: Chronic - Subjective Interval history: Reports feeling better. Has intermittent cough and some shortness of breath. No chest pain, palpitations, nausea or vomiting. - Constitutional Vitals: Temp Pulse Resp BP Pulse Ox 97.6 F 97 20 145/76 93 L 07/01/16 07:17 07/01/16 07:17 07/01/16 07:17 07/01/16 07:17 07/01/16 07:17 General appearance: Present: A&O X 3, answers questions appropriately - Respiratory Respiratory exam: Present: rales (Left basal crackles. No active wheezing.). Absent: accessory muscle use, rhonchi, wheezes - Cardiovascular Cardiovascular exam: Present: RRR, +S1, +S2. Absent: diastolic murmur, gallop, rubs, systolic murmur - GI/Abdominal GI/Abdominal exam: Present: normal bowel sounds, soft, no peritoneal signs. Absent: distended, tenderness - Extremities Exam Extremities exam: Present: full ROM, warm, radial pulses palpable and symetrical. Absent: calf tenderness, cyanotic, pedal edema - Neurological Exam Neurological exam: Present: CN II-XII intact, oriented X3, no focal deficits. Absent: pronater drift, facial droop, speech deficit Internal Medicine: Result - Labs CBC & Chem 7: 07/01/16 01:34 07/01/16 01:34 Labs: Short CBC 07/01/16 Range/Units 01:34 WBC 7.3 (4.3-11.1) K/mcL Hgb 10.4 L (11.5-15.4) g/dL Hct 33.6 L (35.3-44.9) % Plt Count 492 H (140-400) K/mcL BMP 07/01/16 01:34 Sodium 140 Potassium 3.9 Chloride 109 Carbon Dioxide 20 BUN 20 Creatinine 1.38 H Glucose 293 H Calcium 9.5 Cardiac Enzymes 07/01/16 Range/Units 01:34 Troponin I 0.00 (0-0.03) ng/mL Liver Function 07/01/16 Range/Units 01:34 Total Bilirubin 0.2 (0.2-1.2) mg/dL AST 17 (5-34) Units/L ALT 14 (0-55) Units/L Alkaline Phosphatase 76 (38-126) Units/L Albumin 2.9 L (3.5-5.0) g/dL - ABG Interpretation ABG results: PT/INR, D-dimer PT 13.3 Seconds (9.4-12.1) H 07/01/16 01:34 Consult Discharge Plan - Plan Referrals: Bernard Rod Jr, MD [Primary Care Provider] -
[2016-07-01] MEDS ORDERED: Magnesium Sulfate 2 GM in D5% in Water 100 ML IVPB ONE (10:43)
--- NOTE | 2016-07-01 19:54 | Electrocardiograph Report ---
[address] [place], [place] [address] Test Date: 2016-06-30 Pat Name: Caty Lanza Department: 105 Room: 3A22 Gender: F [employer] Services Vice President: : 1945 Requested By: Gustavo Tran Order Number: [id number] Reading MD: Efrem Vazquez Measurements Intervals [place] Rate: 102 P: 37 DC: 160 QRS: 38 QRSD: 133 T: -3 QT: 362 QTc: 421 Interpretive Statements SINUS TACHYCARDIA RIGHT BUNDLE BRANCH BLOCK MODERATE T-WAVE ABNORMALITY, CONSIDER LATERAL ISCHEMIA Electronically Signed On 07-01-2016 19:52:42 EST by Efrem Vazquez
[2016-07-01] MEDS: Insulin DETEMIR 100 UNIT/ML X5UNITS SQ SCH (21:03)
[2016-07-02] MEDS: Ipratropium/Albuterol Neb 3 ML IH SCH ×2 (04:35→10:02)
[2016-07-02] MEDS: *HR* Heparin 5,000 UNIT/ML VIAL SQ SCH (06:01)
[2016-07-02] MEDS: 0.9 % Sodium Chloride 1,000 ML IVC SCH (06:01)
[2016-07-02 06:32] LABS: BUN/Creatinine Ratio 27 (6-26); Blood Urea Nitrogen 28 mg/dL (7-20); Calcium 9.3 mg/dL (8.6-10.8); Carbon Dioxide 21 mEq/L (19-29); Chloride 113 mEq/L (98-109); Glucose 204 mg/dL (70-99); Magnesium 1.9 mg/dL (1.6-2.6); Osmolality,Calculated 307 (280-300); Potassium 4.1 mEq/L (3.5-4.5); Sodium 143 mEq/L (136-145); eGFR For African Americans > 60 (> 60); eGFR For Non-African Americans 53 (> 60)
[2016-07-02 07:24] VITALS: BP 144/75
--- NOTE | 2016-07-02 08:36 | Discharge Summary ---
Date of Encounter: 07/02/16 Time of Encounter: 08:30 - Discharge Diagnosis (1) Community acquired pneumonia Priority: Primary Status: Acute (2) Acute kidney injury Priority: Primary Status: Resolved (3) Acute on chronic respiratory failure with hypoxemia Priority: Primary Status: Acute (4) Diabetes mellitus Priority: Secondary Status: Chronic Qualifiers: Diabetes mellitus type: type 2 Diabetes mellitus complication status: with neurologic complications Diabetes mellitus complication detail: with polyneuropathy Diabetes mellitus custodial insulin use: with custodial use Qualified Code(s): E11.42 - Type 2 diabetes mellitus with diabetic polyneuropathy; 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 of insulin (5) Depression Priority: Secondary Status: Chronic Qualifiers: Depression Type: unspecified Qualified Code(s): F32.9 - Major depressive disorder, single episode, unspecified (6) HTN (hypertension) Priority: Secondary Status: Chronic Qualifiers: Hypertension type: unspecified secondary hypertension Qualified Code(s): I15.9 - Secondary hypertension, unspecified; I15 - Secondary hypertension (7) Obesity (BMI 30-39.9) Priority: Secondary Status: Chronic - Discharge Medications Prescriptions: RX: Benzonatate [Tessalon] 100 mg PO TID PRN #30 capsule PRN Reason: Cough Levofloxacin [Levaquin] 500 mg PO DAILY #5 tablet RX: PredniSONE 40 mg PO DAILY 12 Days Home Medications: RX: Albuterol Neb [AccuNeb] 0.63 mg IH Q4-6H PRN 06/30/16 [History] RX: Albuterol Sulfate [Ventolin Hfa] 2 puff IH Q4H PRN 06/30/16 [History] RX: Amlodipine Besylate 10 mg PO DAILY 06/30/16 [History] RX: Budesonide/Formoterol 160/4.5 [Symbicort 160/4.5] 2 puff IH BIDR 06/30/16 [ History] RX: Escitalopram [Lexapro] 20 mg PO DAILY 06/30/16 [History] RX: Gabapentin [Neurontin] 300 mg PO TID 06/30/16 [History] RX: Insulin NPH, HUMAN [HumuLIN N] 15 unit SQ BID 06/30/16 [History] RX: Omeprazole [PriLOSEC] 20 mg PO DAILY 06/30/16 [History] RX: Oxycodone HCl/Acetaminophen [Percocet 10-325 mg Tablet] 1 each PO Q4-6H PRN 06/30/16 [History] RX: Simvastatin [Zocor] 60 mg PO QPM 06/30/16 [History] RX: Temazepam [Restoril] 30 mg PO HS 06/30/16 [History] Levofloxacin [Levaquin] 500 mg PO DAILY #5 tablet 07/02/16 [Rx] RX: Benzonatate [Tessalon] 100 mg PO TID PRN #30 capsule 07/02/16 [Rx] RX: PredniSONE 40 mg PO DAILY 12 Days 07/02/16 [Rx] RX: Lisinopril [Zestril] 5 mg PO DAILY #0 07/07/16 [Rx] RX: Metformin [Glucophage] 500 mg PO BIDWM #0 07/07/16 [Rx] Allergies/Adverse Reactions: Allergies No Known Allergies Allergy (Verified 06/30/16 15:58) Date of admission: 06/30/16 21:22 Primary care physician: Bernard Rod Jr, MD Consults: 06/30/16 23:16 Consult to Nurse Navigator [CONS] Routine Comment: 06/30/16 23:19 Consult to Occupational Therapy [CONS] Routine Comment: Evaluate, develop and implement POC Consult to Physical Therapy [CONS] Routine Comment: Evaluate, develop and implement POC Discharging clinician: India Bae Anticipated date of discharge: 07/02/16 - Patient Status Disposition: Home, Self-Care Condition: Fair Functional capacity at discharge: independent ambulation Overall status at discharge: patient is progressing back to baseline - Discharge Instructions Follow Up With: Bernard Rod Jr, MD [Primary Care Provider] - 07/09/16 2:30 pm - Diet and Activity Activity: resume usual activities as tolerated, wear oxygen at all times Diet: diabetic diet, low fat, low cholesterol, low salt diet Hospital course: Ms. Lanza is a 71 year old female with the above medical problems, admitted with worsening cough and shortness of breath. She was noted to have pneumonia on chest x-ray and was started on IV hydration and IV antibiotics. She received bronchodilators and supplemental oxygen. She improved significantly with this regimen and remained hemodynamically stable. She was also noted to have acute kidney injury, which began to improve with IV hydration. She is currently medically stable for discharge with oral antibiotics and outpatient follow-up. - Time Spent with Patient Total time spent providing and/or coordinating discharge services: Greater than 30 minutes (45 min) - Constitutional Vitals: Temp Pulse Resp BP Pulse Ox 97.4 F L 86 16 144/75 96 07/02/16 07:16 07/02/16 07:16 07/02/16 07:16 07/02/16 07:16 07/02/16 07:16 General appearance: Present: A&O X 3, answers questions appropriately - Respiratory Respiratory exam: Present: wheezes (B/L wheezing, mild). Absent: accessory muscle use, rales, rhonchi - Cardiovascular Cardiovascular exam: Present: RRR, +S1, +S2. Absent: diastolic murmur, gallop, rubs, systolic murmur - VTE Documentation of Mechanical Device: Graduated compression elastic hosiery
[2016-07-02] MEDS: Insulin LISPRO 300 UNITS/3 ML VIAL SQ SCH (08:57)
[2016-07-02] MEDS: predniSONE 20 MG TABLET PO SCH (08:57)
[2016-07-02] MEDS: amLODIPine 5 MG TABLET PO SCH (08:58)
[2016-07-02] MEDS: Gabapentin 300 MG CAPSULE PO SCH (08:58)
[2016-07-02] MEDS: Insulin DETEMIR 100 UNIT/ML X5UNITS SQ SCH (09:02)
== END 2016-07-02 11:12 | disposition home or self-care (01) ==
LOC: EMEROO 15:56 → 3ANU 15:56
PROVIDERS: ADMIT Family Medicine; ATTEND Internal Medicine

== ENCOUNTER 2018-11-27 09:57 | Observation (INO) ==
[2018-11-27] MEDS ORDERED: 0.9 % Sodium Chloride 1,000 ML IVC ONE ×2 (10:05→10:19)
[2018-11-27] MEDS ORDERED: Ondansetron 4 MG/2 ML VIAL IVP ONE (10:05)
[2018-11-27] MEDS ORDERED: Isovue-370 500 ML BOTTLE IVP ONE (10:27)
[2018-11-27] MEDS ORDERED: Ipratropium/Albuterol Neb 3 ML IH ONE (10:36)
[2018-11-27] MEDS ORDERED: methylPREDNISolone 125 MG/2 ML VIAL IVP ONE (10:37)
[2018-11-27 10:50] LABS: Basophils # 0.1 K/mcL (0.0-0.2); Basophils % 0.9 %; Eosinophils # 0.3 K/mcL (0.0-0.6); Eosinophils % 3.8 %; Hematocrit 37.1 % (35.3-44.9); Hemoglobin 11.7 g/dL (11.5-15.4); Immature Granulocytes % 0.2 % (0-4); Lymphocytes % 22.3 %; Mean Corpuscular HGB Conc 31.5 g/dL (31.6-35.5); Mean Corpuscular Hemoglobin 29.8 pg (28.0-33.3); Mean Corpuscular Volume 94.4 fL (83.0-100.0); Monocytes # 0.7 K/mcL (0.0-1.3); Monocytes % 7.4 %; Neutrophils # 5.8 K/mcL (1.6-8.9); Platelet Count 354 K/mcL (140-400); Red Blood Count 3.93 M/mcL (3.82-4.97); Red Cell Distribution Width 15.1 % (11.5-14.5); Segmented Neutrophils % 65.4 %; White Blood Count 8.8 K/mcL (4.3-11.1)
[2018-11-27 11:10] LABS: Alanine Aminotransferase 16 Units/L (7-52); Albumin 3.6 g/dL (3.5-5.7); Albumin/Globulin Ratio 1.2 (1.1-2.2); Alkaline Phosphatase 76 Units/L (34-104); Aspartate Amino Transferase 19 Units/L (13-39); BUN/Creatinine Ratio 19 (6-26); Bilirubin,Indirect 0.3 mg/dL (0.0-1.2); Bilirubin,Total 0.3 mg/dL (0.3-1.0); Blood Urea Nitrogen 22 mg/dL (8-23); Calcium 9.1 mg/dL (8.6-10.3); Carbon Dioxide 23 mEq/L (23-29); Chloride 108 mEq/L (98-107); Glucose 122 mg/dL (70-105); Lipase 20 Units/L (11-82); Osmolality,Calculated 295 (280-300); Sodium 140 mEq/L (136-145); Total Protein 6.6 g/dL (6.4-8.9); eGFR For African Americans 54 (> 60); eGFR For Non-African Americans 45 (> 60)
[2018-11-27 11:41] LABS: Bilirubin,Urine Small (Negative); Blood,Urine Negative (Negative); Clarity,Urine Clear (Clear); Color,Urine Yellow (Yellow); Glucose,Urine (UA) Normal (Normal); Ketones,Urine 15 mg/dL (Negative); Leukocyte Esterase,Urine Negative (Negative); Nitrite,Urine Negative (Negative); Protein,Urine >=300 mg/dL (Neg-Trace); Specific Gravity,Urine 1.027 (1.010-1.025); Urobilinogen,Urine Normal (Normal)
[2018-11-27 11:46] LABS: Bacteria,Urine None Seen per hpf (None-Few); Hyaline Casts,Urine Few per lpf (None-Few); Squamous Epithelial Cell,Urine Many per lpf (None-Few)
[2018-11-27] MEDS ORDERED: *HR* Promethazine 25 MG/ML VIAL IVP ONE (12:15)
[2018-11-27] MEDS ORDERED: Ibuprofen 600 MG TABLET PO ONE (13:09)
[2018-11-27 13:29] LABS: Troponin I < 0.03 ng/mL (< 0.04)
[2018-11-27] MEDS ORDERED: Ondansetron 4 MG/2 ML VIAL IVP PRN (14:27)
[2018-11-27] MEDS ORDERED: Naloxone 0.4 MG/ML INJ IVP PRN (14:27)
[2018-11-27] MEDS ORDERED: *HR* Promethazine 25 MG/ML VIAL IVP PRN (14:27)
[2018-11-27] MEDS ORDERED: Ringers Solution, Lactated 1,000 ML IVC SCH (14:30)
[2018-11-27] MEDS ORDERED: Benzonatate 100 MG CAPSULE PO PRN (14:34)
[2018-11-27] MEDS ORDERED: Albuterol Neb 0.63 MG/3 ML VIAL IH PRN (14:34)
[2018-11-27] MEDS: Insulin LISPRO 300 UNITS/3 ML VIAL SQ SCH (17:54)
[2018-11-27] MEDS: Gabapentin 300 MG CAPSULE PO SCH ×2 (18:01→21:30)
[2018-11-27] MEDS: Budesonide/Formoterol 160/4.5 1 PUFF INH IH SCH (20:03)
[2018-11-27] MEDS ORDERED: Temazepam 15 MG CAPSULE PO SCH (21:00)
[2018-11-28 05:40] LABS: BUN/Creatinine Ratio 25 (6-26); Blood Urea Nitrogen 26 mg/dL (8-23); Calcium 9.1 mg/dL (8.6-10.3); Carbon Dioxide 23 mEq/L (23-29); Chloride 110 mEq/L (98-107); Glucose 142 mg/dL (70-105); Osmolality,Calculated 301 (280-300); Potassium 4.2 mEq/L (3.5-5.1); Sodium 142 mEq/L (136-145); eGFR For African Americans > 60 (> 60); eGFR For Non-African Americans 51 (> 60)
[2018-11-28] MEDS: Budesonide/Formoterol 160/4.5 1 PUFF INH IH SCH (07:42)
[2018-11-28] MEDS ORDERED: amLODIPine 5 MG TABLET PO SCH (09:00)
[2018-11-28] MEDS: Gabapentin 300 MG CAPSULE PO SCH (09:08)
[2018-11-28] MEDS: Insulin LISPRO 300 UNITS/3 ML VIAL SQ SCH ×2 (09:11→12:42)
[2018-11-28 11:55] VITALS: BP 144/62
== END 2018-11-28 14:11 | disposition home or self-care (01) ==
LOC: EMEROOARM 09:57 → 2NENU 09:57 → SUATTDRO 14:25 → 2NENU 14:46 → CDU 16:54
PROVIDERS: ADMIT Internal Medicine; ATTEND Internal Medicine